=== PATIENT | female | born 1985 | race Caucasian/White ===

== ENCOUNTER 2016-04-23 10:49 | Emergency (ER) | payer SELFPAY ==
--- NOTE | ~2016-04-23 | CR72 ---
[facility] A Service of [facility] RADIOLOGY TEXT RESULTS PATIENT: BEBO JACOB LOCATION: [facility] : 89 UNIT #: [id number] AGE: [address]: Benny Thornton MD SEX: F ORDER DR: [id number] [facility] [address] [place], [place] [address] [id number] MR#: [id number] Acc #: [id number] NAME: BEBO JACOB : 1985 SEX: F STUDY DATE/TIME: 04/23/2016 10:45 UNIT: [facility] ROOM: STUDY DESCRIPTION: CR Chest Single View Portable Attending Physician: Benny Thornton M.D. Ordering Physician: Benny Thornton M.D. Primary Care Physician: No Primary Care Physician MEDICAL IMAGING REPORT This report is preliminary unless electronic signature is present EXAM Portable chest. HISTORY Chest pain onset yesterday. TECHNIQUE Single view chest was obtained. FINDINGS A single AP view of the chest shows both lungs to be clear. The heart is normal in size. The mediastinal contour is normal. No significant bone abnormalities are seen. IMPRESSION Normal AP chest. Dictated by... Meliton Porter M.D. THIS IS AN ELECTRONICALLY VERIFIED REPORT Meliton Porter M.D. at 04/23/2016 3:27 PM RLF/gz TD: 04/23/2016 14:27 JOB #: [id number] MEDICAL IMAGING REPORT COPY
--- NOTE | ~2016-04-23 | EKG ---
PATIENT: BEBO JACOB UNIT #: [id number] Ventricular Rate: 64 BPM Atrial Rate: 64 BPM P-R Interval: 120 ms QRS Duration: 76 ms Q-T Interval: 414 ms QTC Calculation(Bezet): 427 ms P Dunbar: 59 degrees Calculated R Dunbar: 94 degrees Calculated T Dunbar: 57 degrees Diagnosis Line: Sinus rhythm with marked sinus arrhythmia Diagnosis Line: Rightward axis Nonspecific ST abnormality Diagnosis Line: Otherwise normal ECG Diagnosis Line: When compared with ECG of 16-MAY-2010 18:20, Diagnosis Line: No significant change was found Diagnosis Line: Confirmed by JOSÉ MIGUEL OLMOS MD ([id number]) on 04/23/2016 Diagnosis Line: 4:47:00 PM INTERPRETING MD: AMARILIS RODRIGUEZ
[~2016-04-23 10:49] MED LIST: ANTIVERT PO; BACITRACIN30 GM TOP; BENADRYL25 M1 PO; DIAZEPAM PO; NABUMETONE PO; NO MEDICATIONS; ZANTAC PO
[2016-04-23 11:26] LABS: BASOPHIL% 0.5 % (0-2.5); EOSINOPHIL# 0.1 X10e3 (0-0.7); HEMATOCRIT 45.3 % (35.0-45.0); HEMOGLOBIN 15.3 gm/dL (12.0-16.0); LYMPHOCYTE# 2.4 X10e3 (1.0-3.5); LYMPHOCYTE% 23.3 % (17.0-45.0); MEAN CELL VOLUME 81.7 FL (83-96); MEAN CORPUSCULAR HEMOGLOBIN 27.5 PG (28-34); MEAN CORPUSCULAR HGB CONC 33.7 g/dL (30-36); MEAN PLATELET VOLUME 9.4 FL (6.5-11.5); MONOCYTE# 0.7 X10e3 (0-1.0); MONOCYTE% 7.1 % (3.0-12.0); NEUTROPHIL# 6.9 X10e3 (1.5-7.1); NEUTROPHIL% 68.1 % (40-75); PLATELET COUNT 196 X10e3 (140-420); RED BLOOD COUNT 5.54 X10e (3.90-5.30); RED CELL DISTRIBUTION WIDTH 14.4 % (11.0-15.5); WHITE BLOOD COUNT 10.2 X10e3 (4.0-10.5)
[2016-04-23 11:29] LABS: DIFF IND NO
[2016-04-23 11:32] LABS: POC - CKMB <1.0 ng/mL (0.0-7.9); POC - TROPONIN <0.05 ng/mL (<=0.05)
[2016-04-23 11:37] LABS: PARTIAL THROMBOPLASTIN TIME 29.1 SECONDS (23.5-31.3); PROTHROMBIN TIME (PATIENT) 10.8 SECONDS (9.6-11.5)
[2016-04-23 12:55] LABS: ALBUMIN SERUM 4.2 g/dL (3.5-5.0); ALKALINE PHOSPHATASE 73 U/L (32-92); ALT (SGPT) 10 U/L (10-40); AST (SGOT) 16 U/L (10-42); BILIRUBIN, DIRECT 0.1 mg/dL (0.0-0.2); BILIRUBIN,INDIRECT 0.8 mg/dL (0.0-0.9); BILIRUBIN,TOTAL 0.9 mg/dL (0.2-2.0); BLOOD UREA NITROGEN 9 mg/dL (9-23); CALCIUM SERUM 8.5 mg/dL (8.4-10.2); CARBON DIOXIDE 23 mmol/L (22-31); CHLORIDE 106 mmol/L (100-111); CREATININE SERUM 0.9 mg/dL (0.6-1.4); GLOM FILT RATE Estimated ABOVE60 mL/min (>60); GLUCOSE FASTING 81 mg/dL (70-110); POTASSIUM 3.8 mmol/L (3.5-5.1); SODIUM 137 mmol/L (135-145)
[2016-04-23 13:02] LABS: POC - CKMB <1.0 ng/mL (0.0-7.9); POC - TROPONIN <0.05 ng/mL (<=0.05)
== END 2016-04-23 13:07 | disposition home or self-care (01) ==
LOC: CED 10:49
PROVIDERS: Emergency Medicine
DX: R07.9 Chest pain, unspecified (principal)
CPT/HCPCS: 36415; 71010; 80048; 80076; 82553; 84484; 84703; 85025; 85379; 85610; 85730; 93005; 99284